=== PATIENT | male | born 2000 | race African-American/Black ===

== ENCOUNTER 2024-10-08 16:35 | Inpatient (IN) | payer OTHER ==
[~2024-10-08] VITALS: Ht 175.3 cm; Wt 96.2 kg
[2024-10-08 18:38] LABS: BASOPHILS % 0.5 % (0.0-2.0); HEMOGLOBIN. 12.3 g/dL (14.0-18.0); LYMPHOCYTES % 8.9 % (20.0-50.0); MEAN CORPUSCULAR HEMOGLOBIN 27.9 pg (28.0-32.0); MEAN CORPUSCULAR HGB CONC 33.3 g/dL (31.0-37.0); MEAN CORPUSCULAR VOLUME 83.6 fL (80.0-94.0); MEAN PLATELET VOLUME 8.7 fl (7.4-10.4); MONOCYTES % 9.2 % (2.0-8.0); NEUTROPHILS % 81.4 % (40.0-76.0); PLATELET 222 x1000/uL (130-400); RED BLOOD CELL COUNT 4.42 mill/uL (4.7-6.1); RED CELL DISTRIBUTION WIDTH 14.4 % (11.6-14.6); WHITE BLOOD COUNT 10.7 x1000/uL (4.5-11.0)
[2024-10-08 18:46] LABS: CHLORIDE 103 mEq/L (98-107); POTASSIUM 3.4 mEq/L (3.5-5.1); SODIUM 135 mEq/L (136-145)
[2024-10-08 18:48] LABS: CARBON DIOXIDE 23 mEq/L (21-32)
[2024-10-08 18:49] LABS: CALCIUM 9.4 mg/dL (8.7-10.4)
[2024-10-08 18:53] LABS: CREATININE 1.6 mg/dL (0.6-1.3); GLUCOSE 105 mg/dL (70-105)
[2024-10-08 18:54] LABS: ALANINE AMINOTRANSFERASE 53 IU/L (10-49); ALBUMIN 4.3 g/dL (3.2-4.8); ASPARTATE AMINOTRANSFERASE 34 IU/L (<34); UREA NITROGEN BLOOD 12 mg/dL (9-23)
[2024-10-08 18:56] LABS: BILIRUBIN DIRECT 0.3 mg/dL (<=3.0); BILIRUBIN TOTAL 0.7 mg/dL (0.1-1.0); PROTEIN TOTAL 7.9 g/dL (6.0-8.3)
[2024-10-08 18:57] LABS: TROPONIN I HIGH SENSITIVITY < 4 ng/L (3.0-53)
[2024-10-08 19:00] LABS: D-DIMER 0.85 mg/L FEU (<0.50); INR 1.1; PARTIAL THROMBOPLASTIN TIME 33.3 sec (23.4-31.0); PROTHROMBIN TIME 12.3 sec (9.6-11.0)
[2024-10-08] MEDS: ONDANSETRON HCL 4MG/2ML INJ IV STA (21:43)
[2024-10-08] MEDS: MORPHINE SULFATE 4 MG/ML INJ (FOR IV/IM USE) IV STA (21:45)
[2024-10-08] MEDS: ASPIRIN 325MG EC TABLET PO ONE (21:45)
[2024-10-08] MEDS: METOCLOPRAMIDE HCL 10MG/2ML VIAL IV ONE (21:59)
[2024-10-08 22:18] LABS: TROPONIN I HIGH SENSITIVITY < 4 ng/L (3.0-53)
[2024-10-08 22:23] VITALS: BP 138/79; PULSE 105; RESP 23; TEMP 37.94748; TEMP 39.61428; O2SAT 95
[2024-10-08 22:41] VITALS: BP 138/79; PULSE 102; RESP 23; TEMP 39.5872
[2024-10-08] MEDS ORDERED: IPRATROPIUM/ALBUTEROL 0.5-3(2.5)MG/3ML NEB HHN PRN (23:45)
[2024-10-09] VITALS (8 sets, daily range): BP systolic 109–153; BP diastolic 50–78; PULSE 100–118; RESP 14–21; TEMP 37.2252–39.55872; O2SAT 96–100
[2024-10-09] MEDS: ACETAMINOPHEN 325MG TABLET PO PRN ×2 (00:09→13:17)
[2024-10-09] MEDS: ASPIRIN 81MG TABLET PO NR (00:15)
[2024-10-09] MEDS: IOHEXOL-350 100 ML BOTTLE ONE (00:30)
[2024-10-09 04:51] LABS: CLARITY URINE CLEAR (CLEAR); COLOR URINE YELLOW (YELLOW); GLUCOSE URINE NEGATIVE (NEGATIVE); KETONES URINE 1+ (NEGATIVE); LEUKOCYTE ESTERASE URINE NEGATIVE (NEGATIVE); NITRITE URINE NEGATIVE (NEGATIVE); OCCULT BLOOD URINE NEGATIVE (NEGATIVE); PH URINE 6.5 (4.5-8.0); PROTEIN URINE TRACE (NEGATIVE); SPECIFIC GRAVITY URINE 1.049 (1.005-1.030)
[2024-10-09 04:55] LABS: *AMPHETAMINES SCREEN URINE NEGATIVE (NEGATIVE); *BARBITURATES SCREEN URINE NEGATIVE (NEGATIVE); *BENZODIAZEPINES SCREEN URINE NEGATIVE (NEGATIVE); *COCAINE SCREEN URINE NEGATIVE (NEGATIVE); METHADONE URINE SCREEN NEGATIVE (NEGATIVE)
[2024-10-09 04:56] LABS: CANNABINOID URINE SCREEN NEGATIVE (NEGATIVE); ECSTASY MDMA SCREEN URINE NEGATIVE (NEGATIVE); OPIATES URINE SCREEN PRESUMPTIVE POSITIVE (NEGATIVE); PHENCYCLIDINE URINE SCREEN NEGATIVE (NEGATIVE)
[2024-10-09 06:06] LABS: SQUAMOUS EPITHELIAL CELL URINE FEW /lpf (RARE/1+)
[2024-10-09 06:07] LABS: RBC URINE 0-2 /hpf (0-2); WBC URINE 0-2 /hpf (0-2)
[2024-10-09 06:08] LABS: BACTERIA URINE NONE SEEN
[2024-10-09 08:45] LABS: CALCIUM 9.3 mg/dL (8.7-10.4); CARBON DIOXIDE 25 mEq/L (21-32); CHLORIDE 101 mEq/L (98-107); SODIUM 135 mEq/L (136-145)
[2024-10-09 08:50] LABS: CREATININE 1.5 mg/dL (0.6-1.3); GLUCOSE 104 mg/dL (70-105)
[2024-10-09 08:51] LABS: BASOPHILS % 0.3 % (0.0-2.0); HEMATOCRIT. 38.8 % (42.0-52.0); HEMOGLOBIN. 12.6 g/dL (14.0-18.0); LDL CHOLESTEROL 88 mg/dL (5-100); LYMPHOCYTES % 7.4 % (20.0-50.0); MEAN CORPUSCULAR HEMOGLOBIN 27.3 pg (28.0-32.0); MEAN CORPUSCULAR HGB CONC 32.5 g/dL (31.0-37.0); MEAN PLATELET VOLUME 8.8 fl (7.4-10.4); MONOCYTES % 10.2 % (2.0-8.0); NEUTROPHILS % 82.1 % (40.0-76.0); PLATELET 225 x1000/uL (130-400); RED BLOOD CELL COUNT 4.62 mill/uL (4.7-6.1); RED CELL DISTRIBUTION WIDTH 14.5 % (11.6-14.6); TRIGLYCERIDE 63 mg/dL (0-150); UREA NITROGEN BLOOD 11 mg/dL (9-23); WHITE BLOOD COUNT 15.5 x1000/uL (4.5-11.0)
[2024-10-09 08:52] LABS: CHOLESTEROL 141 mg/dL (<200); HDL CHOLESTEROL 40 mg/dL (>55)
[2024-10-09 08:53] LABS: THYROID STIMULATING HORMONE 0.66 uIU/mL (0.55-4.78)
[2024-10-09] MEDS: ENOXAPARIN 30MG/0.3ML SYR SUBCUT SCH (08:54)
[2024-10-09] MEDS: IPRATROPIUM/ALBUTEROL 0.5-3(2.5)MG/3ML NEB HHN SCH (11:11)
[2024-10-09] MEDS: ONDANSETRON HCL 4MG/2ML INJ IV PRN (11:55)
[2024-10-09] MEDS: GUAIFENESIN 200MG/10ML SUGAR FREE UDC PO PRN (11:55)
[2024-10-09] MEDS ORDERED: CEFEPIME 1GM IN DEXT 5% 50ML IV SCH (12:15)
[2024-10-09] MEDS: SODIUM CHLORIDE 0.9% 1,000 ML IV SCH (12:47)
[2024-10-09 13:53] LABS: LACTIC ACID 2.5 mmol/L (0.4-2.0)
[2024-10-09] MEDS: VANCOMYCIN 1GM PMX (XELLIA) 200 ML IV SCH (14:46)
[2024-10-09] MEDS ORDERED: VANCOMYCIN 1.5GM PMX (XELLIA) 300 ML IV NR (15:00)
[2024-10-09] MEDS: CEFEPIME 2GM/100ML 100 ML IV SCH (17:56)
[2024-10-09] MEDS: FAMOTIDINE 20MG TABLET PO SCH (21:36)
[2024-10-10] VITALS (11 sets, daily range): BP systolic 126–147; BP diastolic 71–82; PULSE 91–106; RESP 12–31; TEMP 37.44744–39.4476; O2SAT 95–100
[2024-10-10 07:41] LABS: HEMATOCRIT. 34.9 % (42.0-52.0); HEMOGLOBIN. 11.4 g/dL (14.0-18.0); MEAN CORPUSCULAR HEMOGLOBIN 26.8 pg (28.0-32.0); MEAN CORPUSCULAR HGB CONC 32.7 g/dL (31.0-37.0); MEAN CORPUSCULAR VOLUME 82.2 fL (80.0-94.0); MEAN PLATELET VOLUME 9.2 fl (7.4-10.4); PLATELET 209 x1000/uL (130-400); RED BLOOD CELL COUNT 4.24 mill/uL (4.7-6.1); RED CELL DISTRIBUTION WIDTH 14.1 % (11.6-14.6); WHITE BLOOD COUNT 13.6 x1000/uL (4.5-11.0)
[2024-10-10 08:10] LABS: CARBON DIOXIDE 21 mEq/L (21-32); CHLORIDE 103 mEq/L (98-107); POTASSIUM 3.6 mEq/L (3.5-5.1); SODIUM 133 mEq/L (136-145)
[2024-10-10 08:11] LABS: CALCIUM 8.8 mg/dL (8.7-10.4)
[2024-10-10 08:13] LABS: DIFFERENTIAL COMMENT 1
[2024-10-10 08:16] LABS: CREATININE 1.1 mg/dL (0.6-1.3); GLUCOSE 129 mg/dL (70-105); UREA NITROGEN BLOOD 7 mg/dL (9-23)
[2024-10-10 08:18] LABS: PHOSPHORUS 1.8 mg/dL (2.5-4.9)
[2024-10-10] MEDS: VANCOMYCIN 1GM PMX (XELLIA) 200 ML IV SCH (12:53)
[2024-10-10] MEDS: SUCRALFATE 1G TABLET PO SCH (17:34)
[2024-10-10 17:52] LABS: PLATELET ESTIMATE NORMAL
[2024-10-10] MEDS: SODIUM PHOSPHATE 15 MMOL in SODIUM CHLORIDE 0.9% 245 ML IV NR (20:58)
[2024-10-11] VITALS (11 sets, daily range): BP systolic 126–159; BP diastolic 74–88; PULSE 83–103; RESP 17–23; TEMP 36.89184–39.66984; O2SAT 99–100
[2024-10-11 07:40] LABS: CALCIUM 8.7 mg/dL (8.7-10.4); CARBON DIOXIDE 23 mEq/L (21-32); CHLORIDE 103 mEq/L (98-107); POTASSIUM 4.2 mEq/L (3.5-5.1); SODIUM 133 mEq/L (136-145)
[2024-10-11 07:45] LABS: CREATININE 1.1 mg/dL (0.6-1.3); GLUCOSE 113 mg/dL (70-105)
[2024-10-11 07:46] LABS: UREA NITROGEN BLOOD 7 mg/dL (9-23)
[2024-10-11 07:48] LABS: PHOSPHORUS 2.2 mg/dL (2.5-4.9)
[2024-10-11 09:34] LABS: BASOPHILS % 0.4 % (0.0-2.0); EOSINOPHILS % 0.1 % (0.0-5.0); HEMATOCRIT. 34.1 % (42.0-52.0); HEMOGLOBIN. 11.5 g/dL (14.0-18.0); LYMPHOCYTES % 8.5 % (20.0-50.0); MEAN CORPUSCULAR HEMOGLOBIN 27.7 pg (28.0-32.0); MEAN CORPUSCULAR HGB CONC 33.7 g/dL (31.0-37.0); MEAN CORPUSCULAR VOLUME 82.3 fL (80.0-94.0); MEAN PLATELET VOLUME 9.4 fl (7.4-10.4); MONOCYTES % 9.9 % (2.0-8.0); NEUTROPHILS % 81.1 % (40.0-76.0); PLATELET 220 x1000/uL (130-400); RED BLOOD CELL COUNT 4.14 mill/uL (4.7-6.1); RED CELL DISTRIBUTION WIDTH 14.3 % (11.6-14.6); WHITE BLOOD COUNT 11.9 x1000/uL (4.5-11.0)
[2024-10-11] MEDS ORDERED: AZITHROMYCIN 500 MG TABLET PO ONE (10:00)
[2024-10-11] MEDS: SODIUM PHOSPHATE 20 MMOL in DEXT 5% WATER 243.3333 ML IV NR (10:07)
[2024-10-11] MEDS: DOXYCYCLINE HYCLATE 100MG CAPSULE PO SCH (10:41)
[2024-10-11] MEDS: AMLODIPINE 2.5MG TABLET PO SCH (22:25)
[2024-10-12] VITALS (8 sets, daily range): BP systolic 121–151; BP diastolic 60–89; PULSE 84–101; RESP 13–20; TEMP 36.89184–38.39196; O2SAT 96–100
[2024-10-12] MEDS: ZOLPIDEM TARTRATE 5MG TABLET PO NR (02:10)
[2024-10-12 11:45] LABS: HEMATOCRIT 37.2 % (42.0-52.0); HEMOGLOBIN 12.3 g/dL (14.0-18.0); MEAN CORPUSCULAR HEMOGLOBIN 27.2 pg (28.0-32.0); MEAN CORPUSCULAR HGB CONC 33.1 g/dL (31.0-37.0); MEAN CORPUSCULAR VOLUME 82.2 fL (80.0-94.0); PLATELET 291 x1000/uL (130-400); RED BLOOD CELL COUNT 4.53 mill/uL (4.7-6.1); RED CELL DISTRIBUTION WIDTH 14.7 % (11.6-14.6)
[2024-10-12 11:47] LABS: CHLORIDE 102 mEq/L (98-107); SODIUM 133 mEq/L (136-145)
[2024-10-12 11:48] LABS: CARBON DIOXIDE 25 mEq/L (21-32)
[2024-10-12 11:49] LABS: CALCIUM 9.3 mg/dL (8.7-10.4)
[2024-10-12 11:53] LABS: GLUCOSE 92 mg/dL (70-105); UREA NITROGEN BLOOD 9 mg/dL (9-23)
[2024-10-12 12:24] LABS: MONOTEST NEGATIVE (NEGATIVE)
[2024-10-12] MEDS: AZITHROMYCIN 500 MG in SODIUM CHLORIDE 0.9% 250 ML IV SCH (21:49)
[2024-10-13] VITALS: BP 132/83; PULSE 81; RESP 15; TEMP 37.11408; O2SAT 97
[2024-10-13 04:00] VITALS: BP 129/91; PULSE 96; RESP 14; TEMP 36.89184; O2SAT 99
[2024-10-13 05:15] LABS: CHLAMYDIA TRACHOMATIS NAA Negative (Negative); NEISSERIA GONORRHOEAE NAA Negative (Negative)
[2024-10-13 07:50] VITALS: BP 146/92; PULSE 95; RESP 16; O2SAT 100
[2024-10-13 07:55] LABS: CALCIUM 9.2 mg/dL (8.7-10.4); CHLORIDE 101 mEq/L (98-107); POTASSIUM 4.1 mEq/L (3.5-5.1); SODIUM 134 mEq/L (136-145)
[2024-10-13 07:56] LABS: CARBON DIOXIDE 23 mEq/L (21-32)
[2024-10-13 08:00] VITALS: BP 142/86; PULSE 90; RESP 18; TEMP 36.83628; O2SAT 100
[2024-10-13 08:01] LABS: CREATININE 0.9 mg/dL (0.6-1.3); GLUCOSE 86 mg/dL (70-105); UREA NITROGEN BLOOD 10 mg/dL (9-23)
[2024-10-13 08:06] LABS: BASOPHILS % 0.4 % (0.0-2.0); EOSINOPHILS % 1.4 % (0.0-5.0); HEMATOCRIT. 34.3 % (42.0-52.0); HEMOGLOBIN. 11.5 g/dL (14.0-18.0); LYMPHOCYTES % 12.4 % (20.0-50.0); MEAN CORPUSCULAR HEMOGLOBIN 27.4 pg (28.0-32.0); MEAN CORPUSCULAR HGB CONC 33.6 g/dL (31.0-37.0); MEAN CORPUSCULAR VOLUME 81.5 fL (80.0-94.0); MEAN PLATELET VOLUME 8.8 fl (7.4-10.4); MONOCYTES % 10.8 % (2.0-8.0); PLATELET 322 x1000/uL (130-400); RED BLOOD CELL COUNT 4.21 mill/uL (4.7-6.1); RED CELL DISTRIBUTION WIDTH 14.3 % (11.6-14.6); WHITE BLOOD COUNT 10.5 x1000/uL (4.5-11.0)
[2024-10-13] MEDS ORDERED: AZIT250T MT (10:46)
== END 2024-10-13 13:00 | disposition home or self-care (01) | DRG 872 ==
LOC: ER 16:35 → EDBEDREQ 21:18 → EDBEDREQTM 21:18 → 3WST 22:31
PROVIDERS: ADMIT Internal Medicine; ATTEND Internal Medicine
DX: A41.9 Sepsis, unspecified organism (principal); N17.9 Acute kidney failure, unspecified; A54.9 Gonococcal infection, unspecified; E87.1 Hypo-osmolality and hyponatremia; E87.20 Acidosis, unspecified; R65.20 Severe sepsis without septic shock; Z20.822 Contact with and (suspected) exposure to COVID-19; N18.9 Chronic kidney disease, unspecified; I49.8 Other specified cardiac arrhythmias; D64.9 Anemia, unspecified; I12.9 Hypertensive chronic kidney disease with stage 1 through stage 4 chronic kidney disease, or unspecified chronic kidney disease; R13.10 Dysphagia, unspecified; K21.9 Gastro-esophageal reflux disease without esophagitis; J02.9 Acute pharyngitis, unspecified; R07.89 Other chest pain; R94.31 Abnormal electrocardiogram [ECG] [EKG]
CPT/HCPCS: 36415; 70490; 71045; 71275; 74176; 76700; 80048; 80053; 80061; 80076; 80202; 80305; 81003; 83605; 83735; 83880; 84100; 84145; 84439; 84443; 84484; 85025; 85027; 85379; 86308; 86592; 86850; 86900; 87070; 87081; 87426; 87491; 87536; 87591; 87804; 93005; 93306; 94640; 99291; J0456; J0692; J1650; J2270; J2405; J2765; J3370; J3490; J7030; J7050; J7060; Q9967